=== PATIENT | female | born 1995 | race Caucasian/White ===

== ENCOUNTER 2016-10-08 02:49 | Emergency (ER) | payer OTHER ==
[~2016-10-08] VITALS: Ht 167.6 cm; Wt 72.7 kg
[2016-10-08] MEDS ORDERED: LIDOCAINE 1% (XYLOCAINE) 20 ML VIAL INJ ONE (03:00)
[2016-10-08] MEDS ORDERED: SULFAMETHOXAZOLE/TRIMETHOPRIM 800-160 MG (SEPTRA DS) TAB PO ONE (04:45)
[2016-10-08] MEDS ORDERED: TETANUS, DIPTHERIA, PERTUSSIS (ADACELL) VACCINE 0.5 ML VIAL IM ONE ×2 (04:45→05:20)
[2016-10-08] MEDS ORDERED: TRM50T PO (05:06)
[2016-10-08] MEDS ORDERED: SULF1TAB35 PO (05:06)
[2016-10-08] MEDS ORDERED: ACYC400T PO (05:09)
[2016-10-08 05:44] VITALS: BP 110/68
--- NOTE | 2016-10-08 07:39 | Diagnostic Imaging Report ---
INDICATION: Laceration to wrist. FINDINGS: Two views show no radiopaque foreign bodies. The wrist shows normal alignment of the carpal bones. Radiocarpal joint is normal. There are no fractures. IMPRESSION: Negative left wrist without radiopaque foreign body. Dictated by: Dictated on workstation # [id number]
== END 2016-10-08 05:41 | disposition home or self-care (01) ==
LOC: ED 02:52
DX: S61.512A Laceration without foreign body of left wrist, initial encounter (principal); S61.211A Laceration without foreign body of left index finger without damage to nail, initial encounter; W10.8XXA Fall (on) (from) other stairs and steps, initial encounter; W25.XXXA Contact with sharp glass, initial encounter; Y93.89 Activity, other specified; Y92.008 Other place in unspecified non-institutional (private) residence as the place of occurrence of the external cause
CPT/HCPCS: 12001; 12002; 73100; 90471; 90715; 99283